=== PATIENT | male | born 1995 | race Caucasian/White ===

== ENCOUNTER 2017-01-03 20:50 | Emergency (ER) | payer SELFPAY ==
[~2017-01-03] VITALS: Ht 175.3 cm; Wt 59.0 kg
[2017-01-03 21:00] VITALS: BP 132/88
[2017-01-03] MEDS ORDERED: HYDR-971 PO (21:10)
[2017-01-03] MEDS ORDERED: AMOX500C PO (21:10)
--- NOTE | 2017-01-03 21:10 | PHYS DOC ---
Adult General Chief Complaint Chief Complaint: TOOTH ACHE OR PAIN [facility] Patient is a 21 year old male presents emergency room with complaint of atraumatic dental pain that began approximately 3 days ago. Patient reports he does have a history of poor dental health. He denies antibiotic use or dental procedures performed within the past 90 days. Patient states he was in [facility] and is over here helping his brother move. It is active [facility]. Patient reports that he is a smoker. He denies drug use. He states he does drink occasionally. Review of Systems Review of Systems Constitutional: Denies fever or chills [] Eyes: Denies change in visual acuity, redness, or eye pain [] HENT: Denies nasal congestion or sore throat [] Respiratory: Denies cough or shortness of breath [] Cardiovascular: No additional information not addressed in HPI [] GI: Denies abdominal pain, nausea, vomiting, bloody stools or diarrhea [] : Denies dysuria or hematuria [] Musculoskeletal: Denies back pain or joint pain [] Integument: Denies rash or skin lesions [] Neurologic: Denies headache, focal weakness or sensory changes [] Endocrine: Denies polyuria or polydipsia [] Physical Exam Physical Exam Constitutional: Well developed, well nourished, no acute distress, non-toxic appearance. [] HENT: Normocephalic, atraumatic, bilateral external ears normal, oropharynx moist, no oral exudates, nose normal. There is no trismus. There is widespread dental caries and very stages of decay. There is no purulent drainage or gingival abscesses. There are no mucocutaneous lesions. Eyes: PERRLA, EOMI, conjunctiva normal, no discharge. [] Neck: Normal range of motion, no tenderness, supple, no stridor. There is no meningismus or cervical lymphadenopathy. Cardiovascular:Heart rate regular rhythm, no murmur [] Lungs & Thorax: Bilateral breath sounds clear to auscultation [] Abdomen: Bowel sounds normal, soft, no tenderness, no masses, no pulsatile masses. [] Skin: Warm, dry, no erythema, no rash. [] Back: No tenderness, no CVA tenderness. [] Extremities: No tenderness, no cyanosis, no clubbing, ROM intact, no edema. [] Neurologic: Alert and oriented X 3, normal motor function, normal sensory function, no focal deficits noted. [] Psychologic: Affect normal, judgement normal, mood normal. [] EKG EKG [] Radiology/Procedures Radiology/Procedures [] Course & Med Decision Making Course & Med Decision Making Pertinent Labs and Imaging studies reviewed. (See chart for details) [] Dragon Disclaimer Dragon Disclaimer This electronic medical record was generated, in whole or in part, using a voice recognition dictation system. Departure Departure Impression: Primary Impression: Dental caries Disposition: HOME, SELF-CARE Condition: GOOD Referrals: NO PCP (PCP) Patient Instructions: Dental Caries-Brief, Dental Pain, [id number] Additional Instructions: 1. Take the medication as prescribed. 2. Review the discharge instructions for self-care and reasons to return the emergency department. 2. Use the dental sheet provided with the discharge paperwork for assistance in finding a clinic or dental program to address your dental needs. Scripts Hydrocodone/Apap 5-325 ([place] 5-325 Tablet)1 Each Tablet1 Tab PO PRN Q6HRS PRN PAIN #15 TAB Prov:AYUSH BECK 01/03/17 Amoxicillin 500 Mg [id number] Mg PO TID #30 CAP Prov:AYUSH BECK 01/03/17 AYUSH BECK Jan 03, 2017 21:10
== END 2017-01-03 21:18 | disposition home or self-care (01) ==
LOC: EDBD 20:50 → ER 20:50
DX: K02.9 Dental caries, unspecified (principal); F17.200 Nicotine dependence, unspecified, uncomplicated
CPT/HCPCS: 99283